=== PATIENT | male | born 1995 | race Caucasian/White ===

== ENCOUNTER 2024-11-08 07:47 | Emergency (ER) | payer OTHER ==
[2024-11-08 08:21] VITALS: BP 114/73; PULSE 64
[2024-11-08] MEDS: Ketorolac 30 MG/ML SDV IM ONE (08:31)
[2024-11-08] MEDS: Diphtheria,Pertussis(Acell),Tetanus Vaccine 0.5 ML Syringe IM ONE (08:31)
== END 2024-11-08 09:42 | disposition home or self-care (01) ==
LOC: JP.ED 07:47
DX: S62.627B Displaced fracture of middle phalanx of left little finger, initial encounter for open fracture (principal); Z88.0 Allergy status to penicillin; Z79.899 Other long term (current) drug therapy; Z23 Encounter for immunization; W23.1XXA Caught, crushed, jammed, or pinched between stationary objects, initial encounter
CPT/HCPCS: 73140; 90471; 90715; 96372; 99283; J1885